=== PATIENT | male | born 1970 | race African-American/Black ===

== ENCOUNTER 2016-04-29 22:12 | Inpatient (IN) | payer BC ==
[~2016-04-29] VITALS: Ht 203.2 cm; Wt 114.8 kg
--- NOTE | ~2016-04-29 | EKG ---
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
--- NOTE | ~2016-04-29 | EXE ---
[facility] [address] [place] [address] STRESS ECHOCARDIOGRAM Name: MECHE ORO Room #: 448-P [facility]#: [id number] Admission: 04/30/16 Attend Phys: Ryder Connors MD Discharge: Date of : 74 Date of Service: 04/30/16 1636 Report #: [id number] THIS REPORT FOR: //name// APPROVED REPORT Exam: Stress Echocardiogram Reason for Exam: Chest pain Patient Location: In-Patient/Room 448 Stress Nurse: Maria T Soto HR: 76 bpm Rhythm: NSR Medical History Allergies: No known drug allergies Testing Details Test: Exercise stress testing was performed using a Nico protocol. HR Resting HR: 76 bpm Max Heart Rate (APMHR): 177 bpm Max HR Achieved: 176 bpm Target HR (85% APMHR): 150 bpm % of APMHR: 99 Recovery HR: 107 bpm HR response to stress: Normal HR response to stress BP Resting BP: 118/79 mmHg Max BP: 160/90 mmHg Recovery BP: 180/66 mmHg ECG Resting ECG: NSR, normal EKG Stress ECG: NSR ST Change: Non-ischemic Clinical Reason for Termination: Moderate/severe fatigue Stress Symptoms: Chest pains throughout Exercise duration: 12mis 13sec min Exercise capacity: 13.9 METs Pre-Stress Echo The resting Echocardiogram showed normal left ventricular contractility with an estimated Ejection Fraction of about 55%. [facility] [address] [place] [address] STRESS ECHOCARDIOGRAM Name: MECHE OROANE Room #: 448-P ADM IN .R.#: [id number] Admission: 04/30/16 Attend Phys: Ryder Connors MD Discharge: Date of : 74 Date of Service: 04/30/161635 Report #: [id number] No significant valvular regurgitations noted. Post-Stress Echo The stress Echocardiogram showed normal left ventricular contractility with an estimated Ejection Fraction of about 65-70%. Conclusion The left ventricle is normal in size and wall thickness in both the rest and stress images. Other Information Study Quality: Adequate <Conclusion> The left ventricle is normal in size and wall thickness in both the rest and stress images. <ELECTRONICALLY SIGNED> By: Vu Rodriguez MD, FACC 04/30/161635 35 35 Vu Rodriguez MD, FACC /INF
[~2016-04-29 22:12] MED LIST: FLEXERIL PO; HYDROCODON-ACE1 EAC7; IBUPROFEN 400400 M2 PO; IBUPROFEN 800800 M1 PO; NAPROSYN500 MG PO; NOHOMEMEDICATIONS; NORCO 5-325 TA1 EACH PO; NORFLEX100 MG PO; PERCOCET 10-321 EACH PO; PERCOCET 5-3251 EACH PO; TRAMADOL 50 MG50 MG PO; ZOFRAN ODT4 MG PO
[2016-04-29] MEDS ORDERED: ZANTAC 150MG T150 MG (22:52)
[2016-04-29 23:04] LABS: ABSOLUTE NEUTROPHILS 6.6 thou/uL (1.4-8.2); BASOPHILS 0.8 % (0.0-2.0); EOSINOPHILS 4.3 % (0.0-3.0); HEMATOCRIT 41.1 % (42.0-52.0); HEMOGLOBIN 13.9 gm/dL (14.0-18.0); MCH 29.5 pg (26.0-34.0); MCHC 33.9 g/dL (28.0-37.0); MCV 87.2 fL (80.0-100.0); MONOCYTES 9.5 % (1.0-8.0); PLATELET COUNT 346 thou/uL (150-400); POLYS 64.4 % (36.0-66.0); RBC 4.71 mil/uL (4.50-6.00); RDW 15.2 % (10.5-14.5); WBC 10.3 thou/uL (4.0-11.0)
[2016-04-29 23:12] LABS: MANUAL DIFF NO
[2016-04-29 23:21] LABS: ANION GAP 6 mmol/L (7-16); CALCIUM 8.8 mg/dL (8.5-10.1); CHLORIDE 106 mmol/L (98-107); CO2 28 mmol/L (21-32); CREATININE 1.2 mg/dL (0.6-1.3); NT-PRO BRAIN NAT PEPTIDE 16 pg/mL (<300); POTASSIUM 4.1 mmol/L (3.5-5.1); SODIUM 140 mmol/L (136-145); TROPONIN-I < 0.04 ng/mL (<0.04-0.07)
[2016-04-29 23:33] LABS: GLUCOSE 108 mg/dL (70-99)
[2016-04-29 23:47] LABS: BUN 15 mg/dL (7-18)
[2016-04-30] MEDS ORDERED: PANTOPRAZOLE SO40 M1 PO (18:59)
== END 2016-04-30 19:55 | disposition home or self-care (01) | DRG 313 ==
LOC: ER 22:12 → 4S 04-30 00:43 → EROBS 04-30 00:43 → 4S 04-30 01:12
PROVIDERS: Nurse Practitioner
DX: R07.89 Other chest pain (principal); K21.9 Gastro-esophageal reflux disease without esophagitis; R03.0 Elevated blood-pressure reading, without diagnosis of hypertension; Z28.21 Immunization not carried out because of patient refusal; Z87.828 Personal history of other (healed) physical injury and trauma; Z79.899 Other long term (current) drug therapy
CPT/HCPCS: 10100

== ENCOUNTER 2018-05-04 22:06 | Emergency (ER) | payer BC ==
[~2018-05-04] VITALS: Ht 172.7 cm; Wt 107.0 kg
[~2018-05-04 22:06] MED LIST changes: +PANTOPRAZOLE SO40 M1 PO; +ZANTAC 150MG T150 MG
[2018-05-04 23:23] LABS: ABSOLUTE NEUTROPHILS 6.2 thou/uL (1.4-8.2); BASOPHILS 1.1 % (0.0-2.0); EOSINOPHILS 3.2 % (0.0-3.0); HEMATOCRIT 40.5 % (42.0-52.0); HEMOGLOBIN 13.5 gm/dL (14.0-18.0); LYMPHOCYTES 20.2 % (24.0-44.0); MCH 29.6 pg (26.0-34.0); MCHC 33.3 g/dL (28.0-37.0); MCV 88.8 fL (80.0-100.0); MONOCYTES 8.9 % (1.0-8.0); PLATELET COUNT 344 thou/uL (150-400); POLYS 66.6 % (36.0-66.0); RBC 4.56 mil/uL (4.50-6.00); WBC 9.2 thou/uL (4.0-11.0)
[2018-05-04 23:24] LABS: ANION GAP 10 mmol/L (7-16); BUN 16 mg/dL (7-18); CALCIUM 8.5 mg/dL (8.5-10.1); CHLORIDE 104 mmol/L (98-107); CO2 26 mmol/L (21-32); CREATININE 0.9 mg/dL (0.7-1.3); GLUCOSE 91 mg/dL (74-106); POTASSIUM 3.9 mmol/L (3.5-5.1); SODIUM 140 mmol/L (136-145)
[2018-05-04 23:33] LABS: TROPONIN-I <0.06 ng/mL (<0.06)
[2018-05-05 02:19] VITALS: BP 115/64
--- NOTE | 2018-05-05 08:48 | EKG ---
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1970 Requested By: Perla Shook Order Number: [id number] MD: Ghulam Segura Measurements Intervals [place] Rate: 77 P: 63 PA: 175 QRS: 14 QRSD: 91 T: 17 QT: 396 QTc: 449 Interpretive Statements Sinus rhythm Compared to ECG 04/29/2016 22:18:19 Left ventricular hypertrophy no longer present Electronically Signed On 05-05-2018 8:48:13 CDT by Ghulam Segura [email or web address] ��������������������������������������������� <ELECTRONICALLY SIGNED> ���������������������������������������� By: Ghulam Segura MD ��������������������������������������������� 05/05/18 0848 222 2221 Ghulam Segura MD /LINDSEY
== END 2018-05-05 02:17 | disposition home or self-care (01) ==
LOC: ER 22:06
PROVIDERS: Emergency Medicine
DX: R07.89 Other chest pain (principal); K21.9 Gastro-esophageal reflux disease without esophagitis

== ENCOUNTER 2019-03-05 11:13 | Emergency (ER) | payer BC ==
[~2019-03-05] VITALS: Ht 172.7 cm; Wt 104.3 kg
[2019-03-05 14:05] LABS: HEMATOCRIT 43.6 % (42.0-52.0); HEMOGLOBIN 14.2 gm/dL (14.0-18.0); MCH 29.5 pg (26.0-34.0); MCHC 32.5 g/dL (28.0-37.0); MCV 90.6 fL (80.0-100.0); RBC 4.81 mil/uL (4.50-6.00); RDW 14.8 % (10.5-14.5); WBC 7.2 thou/uL (4.0-11.0)
[2019-03-05 14:12] LABS: CALCIUM 9.5 mg/dL (8.5-10.1); CREATININE 0.9 mg/dL (0.7-1.3); POTASSIUM 4.1 mmol/L (3.5-5.1)
[2019-03-05 14:18] LABS: TOTAL BILIRUBIN 0.2 mg/dL (<0.1-1.0); TOTAL PROTEIN 7.3 g/dL (6.4-8.2)
[2019-03-05] MEDS ORDERED: BUTALB-APAP-CA1 EACH PO (14:21)
[2019-03-05 14:51] VITALS: BP 120/88
== END 2019-03-05 14:52 | disposition home or self-care (01) ==
LOC: ER 11:13
PROVIDERS: Emergency Medicine
DX: R51 Headache (principal); K21.9 Gastro-esophageal reflux disease without esophagitis; Z98.890 Other specified postprocedural states